=== PATIENT | male | born 1955 | race Caucasian/White ===

== ENCOUNTER 2019-11-14 09:50 | Emergency (ER) | payer MEDICARE ==
[~2019-11-14 09:50] MED LIST: AMIODARONE 50 MG/ML, 3ML ONE; CODE BLUE RESPONSE XX ONE; EPINEPHRINE SYRINGE 0.1 MG/ML, 10ML ONE; SODIUM BICARB 8.4%, 50ML SYRINGE ONE
--- NOTE | 2019-11-14 09:57 | NUR ---
940 code cardiac paged [phone] cardiology paged [phone] lab clerk aware 942 dr cruz in [place] 947 code blue paged [phone] pt arrived to er trauma 4
--- NOTE | 2019-11-14 10:10 | NUR ---
PT CAME IN CODING, CODE CALLED AT [phone], PLEASE SEE CODE SHEET
[2019-11-14] MEDS ORDERED: SODIUM BICARBONATE 1 MEQ/ML, 50ML VIAL IVPush ONE (10:23)
[2019-11-14] MEDS ORDERED: AMIODARONE 50 MG/ML, 3ML IVPush ONE ×2 (10:30)
[2019-11-14] MEDS ORDERED: PLEASE ENTER ALLERGIES MC SCH (10:30)
[2019-11-14] MEDS ORDERED: PLEASE ENTER HEIGHT AND WEIGHT MC SCH (10:30)
[2019-11-14] MEDS ORDERED: EPINEPHRINE 1 MG/ML, 1ML IVPush ONE ×2 (10:30)
--- NOTE | 2019-11-14 10:41 | NUR ---
INCREASE EMOTIONAL SUPPORT GIVEN TO SPOUSE AND SON. BELONGINGS GIVEN TO FAMILY
--- NOTE | 2019-11-14 12:11 | NUR ---
Pt's alo is [facility]- [phone].
== END 2019-11-14 13:19 | disposition expired ==
LOC: EDBD → MERGE 09:50 → ED 10:35
DX: I21.19 ST elevation (STEMI) myocardial infarction involving other coronary artery of inferior wall (principal); I46.2 Cardiac arrest due to underlying cardiac condition; R57.8 Other shock; K70.30 Alcoholic cirrhosis of liver without ascites; R10.13 Epigastric pain
CPT/HCPCS: 31500; 92950; 99285; J0282